=== PATIENT | female | born 1955 | race African-American/Black ===

== ENCOUNTER → 2018-03-15 | Outpatient (CLI) | payer OTHER | LOC: CAT 09:12 | DX: J84.10 Pulmonary fibrosis, unspecified (principal); K44.9 Diaphragmatic hernia without obstruction or gangrene; Z79.899 Other long term (current) drug therapy ==

== ENCOUNTER → 2019-10-15 | Outpatient (CLI) | payer OTHER | LOC: RAD 15:26 | PROVIDERS: ATTEND Pediatrics | DX: J84.10 Pulmonary fibrosis, unspecified (principal) ==